=== PATIENT | female | born 1970 | race Caucasian/White ===

== ENCOUNTER 2021-02-17 05:17 | Day surgery (SDC) | payer OTHER ==
[~2021-02-17] VITALS: Ht 162.6 cm; Wt 76.2 kg
[2021-02-17] MEDS ORDERED: fentaNYL citrate 0.05 MG/ML VIAL ONE (07:29)
[2021-02-17] MEDS ORDERED: MIDAZOLAM 2 MG/2 ML VIAL ONE (07:29)
[2021-02-17] MEDS ORDERED: LIDOCAINE 2% 100 MG/5 ML UJET TP ONE ×2 (07:29→10:15)
[2021-02-17] MEDS ORDERED: SIMETHICONE 40 MG/0.6 ML ONE (07:58)
[2021-02-17] MEDS ORDERED: SIMETHICONE 40 MG/0.6 ML GT PRN (10:15)
[2021-02-17] MEDS ORDERED: fentaNYL citrate 0.05 MG/ML VIAL IVP ONE (10:15)
== END 2021-02-17 08:50 | disposition home or self-care (01) ==
LOC: MDS 05:17 → MMU 06:03 → MDS 08:50
PROVIDERS: ATTEND Internal Medicine Gastroenterology
DX: Z12.11 Encounter for screening for malignant neoplasm of colon (principal); D12.2 Benign neoplasm of ascending colon; D12.3 Benign neoplasm of transverse colon; Z80.0 Family history of malignant neoplasm of digestive organs; E11.9 Type 2 diabetes mellitus without complications; E78.00 Pure hypercholesterolemia, unspecified; Z79.84 Long term (current) use of oral hypoglycemic drugs; Z79.899 Other long term (current) drug therapy; Z90.12 Acquired absence of left breast and nipple; Z98.890 Other specified postprocedural states; Z90.710 Acquired absence of both cervix and uterus
CPT/HCPCS: 45385; J3010; J2250